=== PATIENT | male | born 1975 | race Caucasian/White ===

== ENCOUNTER 2024-05-12 08:34 | Outpatient (CLI) | payer OTHER, SELFPAY ==
--- NOTE | 2024-05-12 08:47 | XR_ITS ---
FINAL REPORT CLINICAL HISTORY: OSTEOARTHRITIS FINDINGS: Left hand Two views were obtained. There is no acute fracture or dislocation. There are mild degenerative changes, greatest involving the 1st carpometacarpal. No soft tissue abnormality is identified. IMPRESSION: Mild degenerative changes. Reviewed, Interpreted and Dictated by Rudy Walker III, MD Transcribed by Teresa Porras Authenticated and [facility]
== END 2024-05-12 23:59 | disposition home or self-care (01) ==
PROVIDERS: Visit Provider Chiropractor
DX: M19.90 Unspecified osteoarthritis, unspecified site (principal)
CPT/HCPCS: 73120